=== PATIENT | female | born 1985 | race Caucasian/White ===

== ENCOUNTER 2016-06-16 12:54 | Emergency (ER) | payer MEDICAID, OTHER ==
[~2016-06-16] VITALS: Ht 152.4 cm; Wt 56.0 kg
[2016-06-16 13:00] VITALS: Ht 152.4 cm; Wt 56.0 kg
--- NOTE | 2016-06-16 14:54 | ERD ---
ER Documentation Chief Complaint Date/Time DATE: 06/16/16 TIME: 14:47 Chief Complaint 8 WEEKS WITH PELVIC PAIN HPI This is a 30-year-old female presents to the ER with pelvic pain that started 8 weeks. Patient states that she went to her OB clinic and she was sent here for further workup. Patient denies any vaginal bleeding. She denies any vaginal discharge. She does admit to urinary frequency however denies dysuria. Patient has been having nausea and vomiting secondary to . Vomiting is nonbilious nonbloody patient denies any diarrhea. She denies any fevers or chills. A0 P0 ROS 12 point review of systems was done, all negative except per HPI. Allergies Allergies: Coded Allergies: No Known Allergy (Unverified , 06/16/16) Physical Exam Vitals Vital Signs Date Time Temp Pulse Resp B/P Pulse Ox O2 Delivery O2 Flow Rate FiO2 06/16/16 13:00 98.1 69 19 106/59 99 Physical Exam GENERAL: The patient is well developed and appropriate for usual state of health , in no apparent distress. HEENT: Atraumatic. CHEST: Clear to auscultation bilaterally. There are no rales, wheezes or rhonchi. HEART: Regular rate and rhythm. No murmurs, clicks, rubs or gallops. ABDOMEN: Soft, nontender and nondistended. Good bowel sounds. No rebound or guarding. No gross peritonitis. No gross organomegaly or masses. No Jefferson sign or McBurney point tenderness. BACK: No midline or flank tenderness. NEURO: Alert and oriented. Result Diagram: 06/16/16 1455 Results 24 hrs Laboratory Tests Test 06/16/16 14:40 06/16/16 14:55 Urine Color LT. YELLOW Urine Clarity CLEAR Urine pH 7.0 Urine Specific [place] 1.015 Urine Ketones NEGATIVE Urine Nitrite NEGATIVE Urine Bilirubin NEGATIVE Urine Urobilinogen 0.2 E.U./dL Urine Leukocyte Esterase TRACE Urine Microscopic RBC 2-5/HPF Urine Microscopic WBC 5-10/HPF Urine Epithelial Cells MODERATE Urine Bacteria FEW Urine Hemoglobin TRACE Urine Glucose NEGATIVE% Urine Total Protein NEGATIVE White Blood Count 11.510^3/ul Red Blood Count 4.0010^6/ul Hemoglobin 12.6g/dl Hematocrit 37.6% Mean Corpuscular Volume 94.0fl Mean Corpuscular Hemoglobin 31.5pg Mean Corpuscular Hemoglobin Concent 33.5g/dl Red Cell Distribution Width 13.3% Platelet Count 55976^3/UL Mean Platelet Volume 9.6fl Neutrophils % 75.9% Lymphocytes % 17.7% Monocytes % 5.0% Eosinophils % 0.8% Basophils % 0.3% Nucleated Red Blood Cells % 0.0/100WBC Neutrophils # 8.710^3/ul Lymphocytes # 2.010^3/ul Monocytes # 0.610^3/ul Eosinophils # 0.110^3/ul Basophils # 0.010^3/ul Nucleated Red Blood Cells # 0.010^3/ul Beta HCG, Quantitative 42951.0mIU/ml Procedures/MDM Differential diagnosis: Threatened , missed , incomplete , ectopic , molar , UTI, pyelonephritis. At this time etiology of pelvic pain is unknown however it may be normal given the patient is in a second trimester uterus is expanding. At this time there is no evidence of demise or any other abnormality with the . Patient has denied any vaginal bleeding. There is no evidence of placenta previa or placenta abruptio. Patient is a follow-up with her primary care doctor within 1 -2 days or return to ER sooner if symptoms worsen. My medical decision making shared with the patient she understands and agrees with plan. Departure Diagnosis: Primary Impression: Pelvic pain Condition: Stable MARK SLOAN Jun 16, 2016 14:54
[2016-06-16 15:16] LABS: ADD SCAN DIFF NO
[2016-06-16 15:19] LABS: BASOPHILS % 0.3 % (0.0-2.0); EOSINOPHILS # 0.1 10^3/ul (0.0-0.5); EOSINOPHILS % 0.8 % (0.0-7.0); HEMATOCRIT 37.6 % (37.0-47.0); HEMOGLOBIN 12.6 g/dl (12.0-16.0); LYMPHOCYTES % 17.7 % (15.0-51.0); MEAN CORPUSCULAR HEMOGLOBIN 31.5 pg (29.0-33.0); MEAN CORPUSCULAR HGB CONC 33.5 g/dl (32.0-37.0); MEAN PLATELET VOLUME 9.6 fl (7.4-10.4); MONOCYTE # 0.6 10^3/ul (0.3-0.9); NEUTROPHIL # 8.7 10^3/ul (1.6-7.5); NEUTROPHILS % 75.9 % (39.0-77.0); PLATELET COUNT 296 10^3/UL (140-415); RED CELL DISTRIBUTION WIDTH 13.3 % (11.5-14.5); WHITE BLOOD COUNT 11.5 10^3/ul (4.8-10.8)
[2016-06-16 15:21] LABS: ADD UMIC YES; URINE BILIRUBIN (Dip) NEGATIVE (NEGATIVE); URINE BLOOD (Dip) TRACE (NEGATIVE); URINE COLOR LT. YELLOW (YELLOW); URINE GLUCOSE (Dip) NEGATIVE (NEGATIVE); URINE KETONES (Dip) NEGATIVE (NEGATIVE); URINE LEUKOCYTE ESTERASE (Dip) TRACE (NEGATIVE); URINE NITRITE (Dip) NEGATIVE (NEGATIVE); URINE TOTAL PROTEIN (Dip) NEGATIVE (NEGATIVE); URINE UROBILINOGEN (Dip) 0.2 E.U./dL (0.1-1.0)
--- NOTE | 2016-06-16 15:27 | RADRPT ---
PROCEDURE: US OB. CLINICAL INDICATION: Size and dates , pelvic pain TECHNIQUE: Multiple sonographic images of the pelvis and gravid uterus were obtained. The images were reviewed on a PACS workstation. COMPARISON: No prior studies are available for comparison. FINDINGS: There is a single viable intrauterine gestation. Cardiac activity is present with 148 beats per min [place]. There is a breech presentation. The placenta is posterior. There is no evidence for an abruption or placenta previa. There is a normal amount of amniotic fluid with a MVP = 4.1 cm. Measurements were made in order to determine age. The results are as follows: BPD =3.5 cm HC =13 cm AC =10.5 cm FL =2.0 cm Estimated gestational age of approximately 16 weeks and 3 days based on ultrasound measurements. Clinical age: 16 weeks and 0 days. The estimated date of delivery is 11/28/16, based on ultrasound measurements. The EFW = 152 g, 63%, based on LMP age. RPTAT: AA IMPRESSION: Single viable intrauterine gestation of approximately 16 weeks and 3 days based on ultrasound measu rements. .Ras Diane MD, Date Time Electronically viewed and signed by .Ras Diane MD, on 06/16/2016 15:26 .S/
[2016-06-16 15:33] LABS: BACTERIA,URINE FEW
[2016-06-16 17:09] VITALS: BP 116/63; PULSE 88; RESP 17; TEMP 98
== END 2016-06-16 17:18 | disposition home or self-care (01) ==
LOC: FTE 12:54
DX: O26.892 Other specified pregnancy related conditions, second trimester (principal); R10.2 Pelvic and perineal pain; Z3A.16 16 weeks gestation of pregnancy
CPT/HCPCS: 76805; 81001; 84702; 85025; 86900; 86901; Z7502; 81003

== ENCOUNTER 2016-10-11 21:50 | Outpatient (CLI) | payer MEDICAID ==
[~2016-10-11] VITALS: Ht 157.5 cm; Wt 71.9 kg
[2016-10-11] MEDS ORDERED: PRENAT PO (22:39)
[2016-10-11] MEDS ORDERED: FOLI0.4T2 PO (22:39)
[2016-10-11 22:40] VITALS: Ht 157.5 cm; Wt 71.9 kg
[2016-10-11 22:59] VITALS: BP 110/58; PULSE 76; RESP 18
[2016-10-11 23:26] LABS: ADD UMIC YES; UR ASCORBIC ACID 20 mg/dL (NEGATIVE); UR BACTERIA FEW /HPF (NONE SEEN); UR BILIRUBIN (Dip) NEGATIVE (NEGATIVE); UR BLOOD (Dip) NEGATIVE (NEGATIVE); UR CLARITY CLEAR (CLEAR); UR COLOR YELLOW (YELLOW); UR GLUCOSE (Dip) NEGATIVE (NEGATIVE); UR KETONES (Dip) NEGATIVE (NEGATIVE); UR LEUKOCYTE ESTERASE (Dip) TRACE Leu/ul (NEGATIVE); UR MUCUS FEW /HPF (NONE SEEN); UR NITRITE (Dip) NEGATIVE (NEGATIVE); UR RBC 1 /HPF (0-5); UR SPECIFIC GRAVITY (Dip) 1.023 (1.003-1.030); UR SQUAMOUS EPITHELIAL CELL MODERATE /HPF (FEW); UR TOTAL PROTEIN (Dip) NEGATIVE (NEGATIVE); UR UROBILINOGEN (Dip) NEGATIVE (NEGATIVE)
[2016-10-11 23:40] LABS: ALBUMIN 3.6 g/dl (3.3-4.9); ALBUMIN/GLOBULIN RATIO 1.09; BILIRUBIN,INDIRECT 0.2 mg/dl (0-1.1); BILIRUBIN,TOTAL 0.2 mg/dl (0.2-1.3); CALCIUM 8.7 mg/dl (8.4-10.2); CREATININE 0.43 mg/dl (0.44-1.00); POTASSIUM 3.5 mmol/L (3.5-5.1); TOTAL PROTEIN 6.9 g/dl (6.1-8.1)
--- NOTE | 2016-10-12 00:59 | PN ---
Triage Information Date/Time October 12, 2016 Reason for visit: Rash, itching Weeks of Gestation 33w 3d /Para 1/0 Diabetes: none Hypertention: none Additional information Rash started 3 days ago and increasing with time. Seems to have gotten better since she got here. PMHx: none. PSHx: none. NKDA. Objective Vital Signs Date Time Temp Pulse Resp B/P Pulse Ox O2 Delivery O2 Flow Rate FiO2 10/11/16 22:59 98.2 76 18 110/58 Room Air Heart Rate: 130's Heart Rate Comments Accels to 160 bpm. No decels. Contractions: >10 Minutes Apart Results/Medications Result Diagram: 10/11/16 3623 Results 24 hrs Laboratory Tests Test 10/11/16 21:50 10/11/16 23:13 Urine Color YELLOW Urine Clarity CLEAR Urine pH 5.0 Urine Specific [place] 1.023 Urine Ketones NEGATIVE Urine Nitrite NEGATIVE Urine Bilirubin NEGATIVE Urine Urobilinogen NEGATIVE Urine Leukocyte Esterase TRACE A Urine Microscopic RBC 1 Urine Microscopic WBC 6 H Urine Squamous Epithelial Cells MODERATE Urine Bacteria FEW A Urine Mucus FEW A Urine Hemoglobin NEGATIVE Urine Glucose NEGATIVE Urine Total Protein NEGATIVE Sodium Level 136 Potassium Level 3.5 Chloride Level 106 Carbon Dioxide Level 22 Anion Gap 12 Blood Urea Nitrogen 8 Creatinine 0.43 L Glucose Level 90 Calcium Level 8.7 Total Bilirubin 0.2 Direct Bilirubin 0.00 Indirect Bilirubin 0.2 Aspartate Amino Transf (AST/SGOT) 38 Alanine Aminotransferase (ALT/SGPT) 72 H Alkaline Phosphatase 146 H Total Protein 6.9 Albumin 3.6 Globulin 3.30 H Albumin/Globulin Ratio 1.09 Medications Current Medications Calamine (Calamine Lotion) 1 applic ONCE ONCE TOP ; Start 10/12/16 at 01:00; Stop 10/12/16 at 01:01; Status UNV Disposition: Discharge Assessment/Plan A: IUP at 33w 3d. Rash, pruritus. Possible cholestasis. P:Total bile acids pending. Calamine lotion given to pt. Keep appt with her MD on 10/16 and she is to tell him to check lab results. Reviewed with pt the different possible causes of her rash. MATTIE PAREDES MD Oct 12, 2016 00:59
[2016-10-12] MEDS ORDERED: CALAMINE 170 ML LOT TOP ONE ×2 (01:00)
--- NOTE | 2016-10-12 02:15 | TRIAGE ---
OB Triage Datetime Report Generated by CPN: 10/12/2016 02:15 Datetime: 10/11/2016 22:00 Time of Arrival: 10/11/2016 21:33 EGA: 33.2 Arrived By: Ambulatory Arrived From: Home Chief Complaint: Itching, Rash Pelvic pain Movement: Present Contractions: Denies/Absent Rupture of Membranes: Denies Vaginal Bleeding: None Vaginal Discharge: Denies Recent Sexual Intercouse: Denies Abdominal Trauma: Not Applicable Patient Complaints: Other Time Provider Notified: 10/11/2016 22:15 Provider Notified: Dr العراقي Initial Plan: EFM X2, Bile acids, LFT's, UA
[2016-10-18 21:31] LABS: CHENODEOXYCHOLIC ACID 2.6 umol/L (< OR = 3.1); CHOLIC ACID 5.4 umol/L (< OR = 1.8); DEOXYCHOLIC ACID 0.6 umol/L (< OR = 2.4); TOTAL BILE ACIDS 8.6 umol/L (< OR = 6.8)
== END 2016-10-12 01:31 | disposition home or self-care (01) ==
LOC: OBT 21:50 → L-D 21:51 → OBT 10-12 01:31
PROVIDERS: ATTEND Obstetrics & Gynecology
DX: O26.893 Other specified pregnancy related conditions, third trimester (principal); Z3A.33 33 weeks gestation of pregnancy; R21 Rash and other nonspecific skin eruption; L29.9 Pruritus, unspecified
CPT/HCPCS: 80053; 81001; 83789; Z7500; Z7610; G0463

== ENCOUNTER 2016-10-30 17:49 | Outpatient (CLI) | payer MEDICAID ==
[~2016-10-30] VITALS: Ht 157.5 cm; Wt 73.9 kg
[~2016-10-30 17:49] MED LIST: FOLI0.4T2 PO; PRENAT PO
--- NOTE | 2016-10-30 18:46 | RADRPT ---
PROCEDURE: US OB biophysical profile. CLINICAL INDICATION: evaluation, cholestasis TECHNIQUE: Multiple sonographic images of the pelvis were obtained. The images were reviewed on a PACS workstation. COMPARISON: No prior studies are available for comparison. FINDINGS: There is a single viable intrauterine gestation. Cardiac activity is present with 143 beats per min [place]. There is a vertex presentation. The placenta is posterior and fundal in location. There is no evidence of placental abruption. There is a mildly low amount of amniotic fluid with an NORM = 7.8 cm. Biophysical profile: movement 2/2 tone 2/2. breathing 2/2 NORM 2/2 Total 10/07 RPTAT: AA . IMPRESSION: Normal biophysical profile. Mildly low NORM of 7.8 cm. Physician Angela Date Time Electronically viewed and signed by Physician Angela on 10/30/2016 18:45 /
[2016-10-30 20:20] VITALS: BP 105/57; PULSE 78; RESP 18
[2016-10-30] MEDS ORDERED: LACTATED RINGER'S 1,000 ML IV SCH (21:30)
[2016-10-30] MEDS ORDERED: LACTATED RINGER'S 1,000 ML IV ONE (21:30)
[2016-10-30 22:44] LABS: ALBUMIN 3.1 g/dl (3.3-4.9); ALBUMIN/GLOBULIN RATIO 0.96; BILIRUBIN,INDIRECT 0.2 mg/dl (0-1.1); BILIRUBIN,TOTAL 0.2 mg/dl (0.2-1.3); CALCIUM 8.8 mg/dl (8.4-10.2); CREATININE 0.37 mg/dl (0.44-1.00); POTASSIUM 3.9 mmol/L (3.5-5.1); TOTAL PROTEIN 6.3 g/dl (6.1-8.1)
--- NOTE | 2016-10-31 01:47 | RADRPT ---
PROCEDURE: ULTRASOUND OBSTETRICAL CLINICAL INDICATION: 30-year-old female for amniotic fluid at index evaluation. TECHNIQUE: Multiple sonographic images of the pelvis were obtained. The images were reviewed on a PACS workstation. COMPARISON: Ultrasound biophysical profile October 30, 2016. FINDINGS: There is a single viable intrauterine gestation. Cardiac activity is present with 136 beats per min [place]. There is a vertex presentation. The placenta is fundal. There is a normal amount of amniotic fl uid with an NORM = 8.3 cm. IMPRESSION: 1. Single viable intrauterine gestation with vertex presentation. 2. The amniotic fluid index equals 8.3 cm. .Kelvin Hurst MD, MD Date Time Electronically viewed and signed by .Kelvin Hurst MD, on 10/31/2016 01:46 .Marlo/
--- NOTE | 2016-10-31 02:58 | PN ---
Triage Information Date/Time [id number] Reason for visit: cholestasis itching for 3weeks Weeks of Gestation 35w4d /Para primigravida Diabetes: none Additional information serum bile acid pending Objective Vital Signs Date Time Temp Pulse Resp B/P Pulse Ox O2 Delivery O2 Flow Rate FiO2 10/30/16 20:20 98.5 78 18 105/57 Room Air Intake and Output 10/30/16 10/30/16 10/31/16 15:00 23:00 07:00 Intake Total 1000 ml 1000 ml Balance 1000 ml 1000 ml Heart Rate: 140's Heart Rate Comments reactive Contractions: None Results/Medications Result Diagram: 10/30/16 2100 Results 24 hrs Laboratory Tests Test 10/30/16 21:00 Sodium Level 136 Potassium Level 3.9 Chloride Level 104 Carbon Dioxide Level 20 L Anion Gap 16 Blood Urea Nitrogen 7 Creatinine 0.37 L Glucose Level 81 Calcium Level 8.8 Total Bilirubin 0.2 Direct Bilirubin 0.00 Indirect Bilirubin 0.2 Aspartate Amino Transf (AST/SGOT) 36 Alanine Aminotransferase (ALT/SGPT) 65 Alkaline Phosphatase 214 H Total Protein 6.3 Albumin 3.1 L Globulin 3.20 Albumin/Globulin Ratio 0.96 Imaging Results BPP 8/8 NORM 7.8 repeat NORM 8.3 afte IV hydration Disposition: Discharge Assessment/Plan IUP 35w4d cholestasis? Plan f/u with her OB [facility] in 3days for rosendo for LOAN HERNANDEZ MD Oct 31, 2016 02:58
--- NOTE | 2016-10-31 04:15 | TRIAGE ---
OB Triage Datetime Report Generated by CPN: 10/31/2016 04:15 Datetime: 10/30/2016 23:40 Stage of : OB Triage Monitor Mode: External Quality: Mild Pattern: Normal: <= 5 Contractions in 10 Minutes Resting Tone [place]: Relaxed Heart Rate FHR Baseline Rate: 130 Monitor Mode: External US FHR Baseline Changes: No Baseline Change Variability: Moderate 6-25 bpm Accelerations: 15X15 Decelerations: None Category: Category I Pain Assessment Pain Scale: 0 Pain Presence: None/Denies Pain Type: N/A Datetime: 10/30/2016 22:57 Stage of : OB Triage Monitor Mode: External US Datetime: 10/30/2016 22:34 Stage of : OB Triage Quality: Mild Pattern: Normal: <= 5 Contractions in 10 Minutes Resting Tone [place]: Relaxed Heart Rate FHR Baseline Rate: 120 Monitor Mode: External US FHR Baseline Changes: No Baseline Change Variability: Moderate 6-25 bpm Accelerations: 15X15 Decelerations: None Category: Category I Datetime: 10/30/2016 22:01 Stage of : OB Triage Monitor Mode: External Quality: Mild Pattern: Normal: <= 5 Contractions in 10 Minutes Resting Tone [place]: Relaxed Heart Rate FHR Baseline Rate: 130 Monitor Mode: External US FHR Baseline Changes: No Baseline Change Variability: Moderate 6-25 bpm Accelerations: 15X15 Decelerations: None Category: Category I Datetime: 10/30/2016 21:10 Stage of : OB Triage Monitor Mode: External Quality: Mild Pattern: Normal: <= 5 Contractions in 10 Minutes Resting Tone [place]: Relaxed Heart Rate FHR Baseline Rate: 130 Monitor Mode: External US FHR Baseline Changes: No Baseline Change Variability: Moderate 6-25 bpm Accelerations: 15X15 Decelerations: None Category: Category I Datetime: 10/30/2016 20:46 Monitor Mode: External Pattern: Normal: <= 5 Contractions in 10 Minutes Resting Tone [place]: Relaxed Heart Rate FHR Baseline Rate: 130 Monitor Mode: External US FHR Baseline Changes: No Baseline Change Variability: Moderate 6-25 bpm Accelerations: 15X15 Decelerations: None Category: Category I Datetime: 10/30/2016 20:36 Vaginal Exam Membrane Status: Intact Datetime: 10/30/2016 20:25 Monitor Mode: External Pattern: Normal: <= 5 Contractions in 10 Minutes Resting Tone [place]: Relaxed Heart Rate FHR Baseline Rate: 130 Monitor Mode: External US FHR Baseline Changes: No Baseline Change Variability: Moderate 6-25 bpm Accelerations: 15X15 Decelerations: None Category: Category I Datetime: 10/30/2016 19:57 Stage of : OB Triage Maternal Assessment Level of Consciousness: Fully Conscious Headache: Denies Blurred Vision: No Respiratory Effort: Unlabored Nausea/Vomiting: Denies RUQ Epigastric Pain: Denies Facial Edema: None Labor Evaluation Frequency: placed Monitor Mode: External Resting Tone [place]: Relaxed Heart Rate FHR Baseline Rate: 130 Monitor Mode: External US Pain Assessment Pain Scale: 0 Pain Presence: None/Denies Pain Type: N/A Datetime: 10/30/2016 19:30 Time of Arrival: 10/30/2016 17:35 EGA: 36.0 Arrived By: Ambulatory Arrived From: Office Chief Complaint: sent from clinic w/ orders for NST/BPP for cholestasis Movement: Present Contractions: Denies/Absent Patient Complaints: Other Time Provider Notified: 10/30/2016 21:10 Provider Notified: Dr Hilario Initial Plan: NST/BPP Datetime: 10/12/2016 00:38 Stage of : OB Triage Datetime: 10/12/2016 00:30 Stage of : OB Triage Labor Evaluation Frequency: Occasional Monitor Mode: External Duration (sec)2399: 40-60 Quality: Mild Pattern: Normal: <= 5 Contractions in 10 Minutes Resting Tone [place]: Relaxed Heart Rate FHR Baseline Rate: 135 Monitor Mode: External US FHR Baseline Changes: No Baseline Change Variability: Moderate 6-25 bpm Accelerations: 15X15 Decelerations: None Category: Category I Datetime: 10/11/2016 23:30 Stage of : OB Triage Labor Evaluation Frequency: Occasional Monitor Mode: External Duration (sec)2399: 40-60 Quality: Mild Pattern: Normal: <= 5 Contractions in 10 Minutes Resting Tone [place]: Relaxed Heart Rate FHR Baseline Rate: 125 Monitor Mode: External US FHR Baseline Changes: No Baseline Change Variability: Moderate 6-25 bpm Accelerations: 15X15 Decelerations: None Category: Category I Datetime: 10/11/2016 22:47 Assessment Type: Triage Maternal Assessment Level of Consciousness: Fully Conscious DTR's/Clonus: DTRs 2+; No Clonus Headache: Denies Blurred Vision: No Respiratory Effort: Unlabored; Regular Rhythm; Equal Expansion Breath Sounds, Left: Clear and Equal Breath Sounds, Right: Clear and Equal Nausea/Vomiting: Denies RUQ Epigastric Pain: Denies Lower Extremities Edema: None Degree: None Upper Extremities Edema: None Degree: None Facial Edema: None Fall Risk Assessment History of Falling: (0) No Secondary Diagnosis: (0) No Ambulatory Aid: (0) Bedrest/Nurse Assist IV Therapy: (0) No Gait: (0) Normal/Bedrest/Immobile Mental Status: (0) Oriented to Own Ability Fall Score: 0 Fall Risk Score Definition: No Risk: No action required Comment: Pt has visible rashy spots over both BUE and BLE. Datetime: 10/11/2016 22:28 Monitor Mode: External Contraction Comments: Applied Monitor Mode: External US Comments: Applied Datetime: 10/11/2016 22:00 EGA: 33.2
== END 2016-10-31 02:26 | disposition home or self-care (01) ==
LOC: L-D 17:49 → OBT 17:49 → L-D 19:47 → OBT 10-31 02:26
PROVIDERS: ATTEND Obstetrics & Gynecology
DX: O26.613 Liver and biliary tract disorders in pregnancy, third trimester (principal); K83.1 Obstruction of bile duct; O26.893 Other specified pregnancy related conditions, third trimester; L29.9 Pruritus, unspecified; Z3A.35 35 weeks gestation of pregnancy
CPT/HCPCS: 36415; 76815; 76818; 80053; 96360; 96361; G0463; J7120

== ENCOUNTER 2016-11-07 14:47 | Outpatient (CLI) | payer MEDICAID ==
[~2016-11-07] VITALS: Ht 152.4 cm; Wt 74.9 kg
--- NOTE | 2016-11-07 15:14 | RADRPT ---
PROCEDURE: Obstetrical ultrasound for biophysical profile CLINICAL INDICATION: Biophysical profile. . TECHNIQUE: Obstetrical ultrasound of the uterus for biophysical profile. Transabdominal views are obtained. COMPARISON: 10/31/2016 FINDINGS: Single intrauterine gestation. Presentation: Cephalic. Placenta: Fundal - posterior No evidence of placental abruption. No evidence of placenta previa. breathing movement = 2/2 tone = 2/2 motion = 2/2 NORM = 2/2 NORM = 15.3 cm heart rate: 161 beats per minute IMPRESSION: Single intrauterine gestation. Biophysical profile 10/07 RPTAT: AADD .Bobby Zapata MD, MD Date Time Electronically viewed and signed by .Bobby Zpaata MD, on 11/07/2016 15:13 .B/
[2016-11-07 15:21] VITALS: BP 110/64; PULSE 77; Ht 152.4 cm; Wt 74.9 kg
[2016-11-07 17:31] LABS: ALBUMIN 3.2 g/dl (3.3-4.9); BILIRUBIN,INDIRECT 0.2 mg/dl (0-1.1); BILIRUBIN,TOTAL 0.2 mg/dl (0.2-1.3); CALCIUM 9.2 mg/dl (8.4-10.2); CREATININE 0.41 mg/dl (0.44-1.00); POTASSIUM 4.1 mmol/L (3.5-5.1); TOTAL PROTEIN 6.4 g/dl (6.1-8.1)
--- NOTE | 2016-11-07 18:23 | PN ---
Triage Information Date/Time Reason for visit: Weeks of Gestation 37w 1d /Para Additional information Elevated LFTs Objective Vital Signs Date Time Temp Pulse Resp B/P Pulse Ox O2 Delivery O2 Flow Rate FiO2 11/07/16 15:21 97.9 77 110/64 Heart Rate Comments reactive Contractions: >10 Minutes Apart Results/Medications Result Diagram: 11/07/16 1645 Results 24 hrs Laboratory Tests Test 11/07/16 16:45 Sodium Level 135 Potassium Level 4.1 Chloride Level 108 Carbon Dioxide Level 22 Anion Gap 9 Blood Urea Nitrogen 7 Creatinine 0.41 L Glucose Level 78 Calcium Level 9.2 Total Bilirubin 0.2 Direct Bilirubin 0.00 Indirect Bilirubin 0.2 Aspartate Amino Transf (AST/SGOT) 33 Alanine Aminotransferase (ALT/SGPT) 53 Alkaline Phosphatase 242 H Total Protein 6.4 Albumin 3.2 L Globulin 3.20 Albumin/Globulin Ratio 1.00 Imaging Results BPP 10/07, NORM 15.3cm Disposition: Discharge Assessment/Plan 30 y/o at 37w 1d with elevated LFTs, decreasing -discharge home -biweekly NSTs/NORM -f/u with OB GERARDO CRAFT Nov 07, 2016 18:23
--- NOTE | 2016-11-07 18:26 | TRIAGE ---
OB Triage Datetime Report Generated by CPN: 11/07/2016 18:26 Datetime: 11/07/2016 18:07 Stage of : OB Triage Datetime: 11/07/2016 17:58 Labor Evaluation Frequency: x1 Monitor Mode: External Duration (sec)2399: 70 Quality: Mild Pattern: Normal: <= 5 Contractions in 10 Minutes Resting Tone [place]: Relaxed Contraction Comments: denies feeling Heart Rate FHR Baseline Rate: 125 Monitor Mode: External US Variability: Moderate 6-25 bpm Accelerations: 10X10 Decelerations: None Category: Category I Pain Assessment Pain Scale: 0 Pain Presence: None/Denies Pain Type: N/A Pain Goal: 3 Pain Relief Measures: Comfort Measures Datetime: 11/07/2016 17:54 Stage of : OB Triage Datetime: 11/07/2016 16:26 Stage of : OB Triage Datetime: 11/07/2016 16:20 Labor Evaluation Frequency: 0 Monitor Mode: External Resting Tone [place]: Relaxed Heart Rate FHR Baseline Rate: 125 Monitor Mode: External US Variability: Moderate 6-25 bpm Accelerations: 10X10 Decelerations: None Category: Category I Pain Assessment Pain Scale: 0 Pain Presence: None/Denies Pain Type: N/A Pain Goal: 3 Pain Relief Measures: Comfort Measures Datetime: 11/07/2016 15:17 Stage of : OB Triage Assessment Type: Triage Maternal Assessment Level of Consciousness: Fully Conscious DTR's/Clonus: DTRs 2+; No Clonus Headache: Denies Blurred Vision: No Respiratory Effort: Unlabored; Regular Rhythm; Equal Expansion Breath Sounds, Left: Clear and Equal Breath Sounds, Right: Clear and Equal Nausea/Vomiting: Denies RUQ Epigastric Pain: Denies Facial Edema: None Temperature Route: Axillary Fall Risk Assessment History of Falling: (0) No Secondary Diagnosis: (0) No Ambulatory Aid: (0) Bedrest/Nurse Assist IV Therapy: (0) No Gait: (0) Normal/Bedrest/Immobile Mental Status: (0) Oriented to Own Ability Fall Score: 0 Fall Risk Score Definition: No Risk: No action required Labor Evaluation Frequency: APPLIED Monitor Mode: External Heart Rate FHR Baseline Rate: 150 Monitor Mode: External US Variability: Moderate 6-25 bpm Accelerations: 10X10 Decelerations: None Category: Category I Pain Assessment Pain Scale: 0 Pain Presence: None/Denies Pain Type: N/A Pain Goal: 3 Pain Relief Measures: Comfort Measures Datetime: 11/07/2016 15:15 Time of Arrival: 11/07/2016 14:40 EGA: 37.1 Arrived By: Ambulatory Arrived From: Home Chief Complaint: INCREASD LIVER ENZYMES, BIWEEKLY NST/BPP Movement: Present Contractions: Denies/Absent Rupture of Membranes: Denies Vaginal Bleeding: None Vaginal Discharge: Denies Recent Sexual Intercouse: Denies Abdominal Trauma: Not Applicable Time Provider Notified: 11/07/2016 16:26 Provider Notified: eshaghian Initial Plan: MONITOR, BPP, cmp Datetime: 10/31/2016 02:08 Stage of : OB Triage Datetime: 10/31/2016 01:42 Stage of : OB Triage Monitor Mode: External Quality: Mild Pattern: Normal: <= 5 Contractions in 10 Minutes Resting Tone [place]: Relaxed Heart Rate FHR Baseline Rate: 125 Monitor Mode: External US FHR Baseline Changes: No Baseline Change Variability: Moderate 6-25 bpm Accelerations: 15X15 Decelerations: None Category: Category I Datetime: 10/31/2016 00:41 Stage of : OB Triage Quality: Mild Pattern: Normal: <= 5 Contractions in 10 Minutes Resting Tone [place]: Relaxed Heart Rate FHR Baseline Rate: 135 Monitor Mode: External US FHR Baseline Changes: No Baseline Change Variability: Moderate 6-25 bpm Accelerations: 15X15 Decelerations: None Category: Category I Datetime: 10/30/2016 19:30 EGA: 36.0 Datetime: 10/11/2016 22:47 Fall Score: 0 Fall Risk Score Definition: No Risk: No action required Datetime: 10/11/2016 22:00 EGA: 33.2
== END 2016-11-07 18:15 | disposition home or self-care (01) ==
LOC: L-D 14:47 → OBT 14:47 → L-D 14:56 → OBT 18:15
PROVIDERS: ATTEND Obstetrics & Gynecology
DX: O26.893 Other specified pregnancy related conditions, third trimester (principal); Z3A.37 37 weeks gestation of pregnancy; R94.5 Abnormal results of liver function studies
CPT/HCPCS: 36415; 76818; 80053; G0463

== ENCOUNTER 2016-11-10 14:10 | Outpatient (CLI) | payer MEDICAID ==
[~2016-11-10] VITALS: Ht 157.5 cm; Wt 74.9 kg
[2016-11-10 14:30] VITALS: Ht 157.5 cm; Wt 74.9 kg
[2016-11-10 14:31] VITALS: BP 106/61; PULSE 96; RESP 18
--- NOTE | 2016-11-10 15:01 | RADRPT ---
PROCEDURE: US OB biophysical profile. CLINICAL INDICATION: decreased movements, abdominal pain TECHNIQUE: Multiple sonographic images of the pelvis were obtained. The images were reviewed on a PACS workstation. COMPARISON: 11/07/2016 FINDINGS: There is a single viable intrauterine gestation. Cardiac activity is present with 129 beats per min [place]. There is a vertex presentation. The placenta is fundal. There is no evidence of placental abruption. There is a normal amount of amniotic fluid with an NORM = 11.8 cm. Biophysical profile: movement 2/2 tone 2/2. breathing 2/2 NORM 2/2 Total 10/07 RPTAT: AA . IMPRESSION: Normal biophysical profile. . .Ras Diane MD, MD Date Time Electronically viewed and signed by .Ras Diane MD, MD on 11/10/2016 15:00 .S/
--- NOTE | 2016-11-10 15:44 | TRIAGE ---
OB Triage Datetime Report Generated by CPN: 11/10/2016 15:44 Datetime: 11/10/2016 15:20 Stage of : OB Triage Maternal Assessment Level of Consciousness: Fully Conscious Labor Evaluation Frequency: NONE Monitor Mode: External Resting Tone [place]: Relaxed Heart Rate FHR Baseline Rate: 135 Monitor Mode: External US Variability: Moderate 6-25 bpm Accelerations: 15X15 Decelerations: None Category: Category I Pain Assessment Pain Scale: 0 Pain Goal: 3 Vaginal Exam Membrane Status: Intact Vaginal Bleeding: None Datetime: 11/10/2016 14:35 Assessment Type: Triage Maternal Assessment Level of Consciousness: Fully Conscious DTR's/Clonus: DTRs 2+; No Clonus Headache: Denies Blurred Vision: No Respiratory Effort: Unlabored; Regular Rhythm; Equal Expansion Breath Sounds, Left: Clear and Equal Breath Sounds, Right: Clear and Equal Nausea/Vomiting: Denies RUQ Epigastric Pain: Denies Lower Extremities Edema: None Degree: None Upper Extremities Edema: None Degree: None Facial Edema: None Fall Risk Assessment History of Falling: (0) No Secondary Diagnosis: (0) No Ambulatory Aid: (0) Bedrest/Nurse Assist IV Therapy: (0) No Gait: (0) Normal/Bedrest/Immobile Mental Status: (0) Oriented to Own Ability Fall Score: 0 Fall Risk Score Definition: No Risk: No action required Datetime: 11/10/2016 14:33 Time of Arrival: 11/10/2016 14:02 EGA: 37.1 Arrived By: Ambulatory Arrived From: Home Chief Complaint: pt HERE FOR NST/BPP FOR ELV[place] LIVER ENZYMES Movement: Present Contractions: Denies/Absent Rupture of Membranes: Denies Vaginal Bleeding: None Vaginal Discharge: Denies Recent Sexual Intercouse: Yes Abdominal Trauma: Not Applicable Patient Complaints: None Time Provider Notified: 11/10/2016 15:15 Provider Notified: ESHAGHIAN Initial Plan: NST/BPP Datetime: 11/10/2016 14:28 Monitor Mode: External Monitor Mode: External US Datetime: 11/07/2016 15:17 Fall Score: 0 Fall Risk Score Definition: No Risk: No action required Datetime: 11/07/2016 15:15 EGA: 36.5 Datetime: 10/30/2016 19:30 EGA: 35.4 Datetime: 10/11/2016 22:47 Fall Score: 0 Fall Risk Score Definition: No Risk: No action required Datetime: 10/11/2016 22:00 EGA: 32.6
--- NOTE | 2016-11-10 18:49 | QN ---
Documentation Comment iup 37 weeks g1 po vss exam wnl labs wnl nst reactive a/p iup 37 pruritis dc home fu nst as ROBERTO Garcia MD Nov 10, 2016 18:49
== END 2016-11-10 15:30 | disposition home or self-care (01) ==
LOC: OBT 14:10 → L-D 14:10 → OBT 15:30
PROVIDERS: ATTEND Obstetrics & Gynecology
DX: O26.893 Other specified pregnancy related conditions, third trimester (principal); Z3A.37 37 weeks gestation of pregnancy; L29.9 Pruritus, unspecified
CPT/HCPCS: 76818; Z7500; G0463

== ENCOUNTER 2016-11-14 13:49 | Inpatient (IN) | payer MEDICAID ==
[~2016-11-14] VITALS: Ht 160 cm; Wt 69.5 kg
--- NOTE | 2016-11-14 15:10 | RADRPT ---
PROCEDURE: US OB biophysical profile. CLINICAL INDICATION: decreased movements, abdominal pain TECHNIQUE: Multiple sonographic images of the pelvis were obtained. The images were reviewed on a PACS workstation. COMPARISON: 11/10/2016 FINDINGS: There is a single viable intrauterine gestation. Cardiac activity is present with 152 beats per min [place]. There is a vertex presentation. The placenta is fundal. There is no evidence of placental abruption. There is a normal amount of amniotic fluid with an NORM = 9.4 cm. Biophysical profile: movement 2/2 tone 2/2. breathing 2/2 NROM 2/2 Total 10/07 RPTAT: AA . IMPRESSION: Normal biophysical profile. . .Ras Diane MD, MD Date Time Electronically viewed and signed by .Ras Diane MD, MD on 11/14/2016 15:10 .S/
[2016-11-14] MEDS ORDERED: OXYTOCIN 30 UNITS/LR 500 ML IV PRN (17:00)
[2016-11-14] MEDS ORDERED: METHYLERGONOVINE 0.2 MG INJ IM PRN (17:00)
[2016-11-14] MEDS ORDERED: BUTORPHANOL 2 MG INJ IV PRN ×2 (17:00)
[2016-11-14] MEDS ORDERED: MISOPROSTOL 200 MCG TAB PR PRN (17:00)
[2016-11-14] MEDS ORDERED: CARBOPROST 250 MCG INJ IM PRN (17:00)
[2016-11-14] MEDS ORDERED: LACTATED RINGER'S 1,000 ML IV PRN (17:00)
[2016-11-14] MEDS ORDERED: LIDOCAINE 1% (MPF) 30 ML INJ INJ PRN (17:00)
[2016-11-14] MEDS ORDERED: OXYTOCIN 30 UNITS/LR 500 ML IV SCH ×2 (17:00)
--- NOTE | 2016-11-14 17:00 | HP ---
Date/Time of Note Date/Time of Note DATE: 11/14/16 TIME: 16:58 OB - History Hx of Present Free Text/Dictation 38+wks with cholestasis of : 1 Para: 0 Care: Good Care Obstetrical Complications: Other (cholestasis of pegnacy) Medical Complications: None Past Family/Social History * Past Medical, Surgical, Family and Obstetric Histories reviewed from chart. OB Admission Exam Physical Exam Abdomen: WNL Extremities: Normal Membranes: Intact Accelerations: Accelerations Present Decelerations: No Decelerations Varibility: Moderate Contractions on Admission: >10 Minutes Apart OB Assessment/Plan Reason for admission: observation Plan: Expectant Management Other plan: Patient i admitted and needs to be evaluated by her Private OB for possible delivery RAYMOND AZAR M.D. Nov 14, 2016 17:00
[2016-11-14] MEDS: LACTATED RINGER'S 1,000 ML IV SCH (17:14)
[2016-11-14 17:37] LABS: BASOPHILS % 0.2 % (0.0-2.0); EOSINOPHILS # 0.1 10^3/ul (0.0-0.5); HEMATOCRIT 40.3 % (37.0-47.0); HEMOGLOBIN 13.9 g/dl (12.0-16.0); LYMPHOCYTES # 1.8 10^3/ul (0.8-2.9); LYMPHOCYTES % 19.4 % (15.0-51.0); MEAN CORPUSCULAR HGB CONC 34.5 g/dl (32.0-37.0); MEAN CORPUSCULAR VOLUME 95.7 fl (82.0-101.0); MEAN PLATELET VOLUME 10.9 fl (7.4-10.4); MONOCYTE # 0.7 10^3/ul (0.3-0.9); MONOCYTES % 7.3 % (0.0-11.0); NEUTROPHIL # 6.7 10^3/ul (1.6-7.5); NEUTROPHILS % 71.5 % (39.0-77.0); PLATELET COUNT 266 10^3/UL (140-415); RED BLOOD COUNT 4.21 10^6/ul (4.20-5.40); RED CELL DISTRIBUTION WIDTH 12.4 % (11.5-14.5); WHITE BLOOD COUNT 9.4 10^3/ul (4.8-10.8)
[2016-11-14 18:02] LABS: INR 0.82; PROTIME 11.3 Sec (12.2-14.2); PT RATIO 0.9
[2016-11-14 18:03] LABS: PARTIAL THROMBOPLASTIN TIME 27.1 Sec (25.0-35.0)
--- NOTE | 2016-11-15 07:49 | QN ---
Documentation Comment patient is seen and evaluated AAo x 3 complains of generalized itching vs stable ab gravid not extremity no edema no calf tenderness ve short close, no vaginal lesions fhr cat 1 toco no ctx bile acid in mid agust 8.6 a/ iup at 38 wks 2 day with symptomatic cholestasis of p/ start cytotec regimen r/b/a explained all question answered DAVID MALDNOADO MD Nov 15, 2016 07:49
[2016-11-15] MEDS: MISOPROSTOL 25 MCG CAPSULE PO SCH ×4 (09:39→21:55)
[2016-11-16] MEDS: MISOPROSTOL 25 MCG CAPSULE PO SCH ×6 (02:06→21:00)
[2016-11-16] MEDS: LACTATED RINGER'S 1,000 ML IV SCH ×4 (06:12→16:35)
[2016-11-16] MEDS ORDERED: OXYTOCIN 30 UNITS/LR 500 ML IV SCH (10:30)
--- NOTE | 2016-11-16 12:28 | QN ---
Documentation Comment Progress note labor and delivery Patient was seen and evaluated awake alert oriented 3 no complaints Vital signs stable Abdomen gravid nontender negative CVA bilateral Extremity negative edema no calf tenderness Vaginal exam 1 cm dilated 50% effaced -3 station spontaneous rupture of membranes heart tracing category 1 [place] regular contractions Assessment intrauterine at term admitted for induction secondary to cholestasis of currently on Pitocin Plan continue present management risks benefits alternatives explained all questions were answered DAVID MALDONADO MD Nov 16, 2016 12:28
[2016-11-16] MEDS ORDERED: FENTAnyl 2MCG/ML-ROPIV 0.2% 100 ML ONE (15:41)
[2016-11-16 15:55] VITALS: Ht 160 cm; Wt 69.5 kg
[2016-11-17] MEDS: LACTATED RINGER'S 1,000 ML IV SCH ×6 (00:11→21:47)
[2016-11-17] MEDS ORDERED: MINERAL OIL LIGHT 10 ML VIAL TOP PRN (00:30)
[2016-11-17] MEDS: MISOPROSTOL 25 MCG CAPSULE PO SCH ×2 (01:00→05:00)
[2016-11-17] MEDS: FENTAnyl 2MCG/ML-ROPIV 0.2% 100 ML BAG EPI SCH ×2 (01:12→08:48)
[2016-11-17] MEDS ORDERED: NALOXONE (0.4 MG/ML) INJ IV PRN ×2 (01:30→16:00)
[2016-11-17] MEDS ORDERED: AMPICILLIN 2 GM/NS (PMX) 100 ML IV ONE (02:00)
[2016-11-17] MEDS: AMPICILLIN 1 GM/NS (PMX) 50 ML IV SCH ×2 (06:32→10:38)
[2016-11-17] MEDS ORDERED: CEFAZOLIN 1 GM INJ ONE (14:00)
[2016-11-17] MEDS ORDERED: OXYTOCIN 30 UNITS/LR 500 ML BAG IV ONE (14:00)
--- NOTE | 2016-11-17 14:27 | QN ---
Documentation Comment Preop progress note Patient was seen and evaluated awake alert oriented 3 Currently having recurrent decelerations Vaginal exam centimeter dilated 100% effaced +2 station positive meconium Patient declines vacuum assisted delivery Assessment interim at 38 weeks gestational age cholestasis of category 2 tracing positive meconium , prolonged rupture of membranes, anterior vaginal cyst declines vacuum-assisted vaginal delivery desires delivery Plan consent for primary risks benefits alternatives may all questions were answered in Serbian and patient verbally understands and signed consent DAVID MALDONADO MD Nov 17, 2016 14:27
[2016-11-17] MEDS ORDERED: CEFAZOLIN 2 GM/50 ML (PMX) 50 ML IVPB ONE (14:35)
[2016-11-17] MEDS ORDERED: LIDOCAINE 2%/EPI 30 ML INJ ONE (14:45)
[2016-11-17] MEDS ORDERED: FENTAnyl 50 MCG/ML VIAL ONE (14:45)
[2016-11-17] MEDS ORDERED: NA BICARBONATE 8.4% 50 ML SYG ONE (14:45)
[2016-11-17] MEDS ORDERED: DEXAMETHASONE 4 MG/ML 1 ML INJ ONE (14:59)
[2016-11-17] MEDS ORDERED: ONDANSETRON 4 MG INJ ONE (14:59)
[2016-11-17] MEDS ORDERED: KETAMINE 500 MG INJ ONE (15:05)
[2016-11-17] MEDS ORDERED: morphine SULFATE/PF (10 MG/10 ML) INJ ONE (15:21)
--- NOTE | 2016-11-17 15:35 | SIPON ---
Date/Time of Note Date/Time of Note DATE: 11/17/16 TIME: 15:32 Operative Report Free Text/Dictation a viable male aprgar 8/9 weight 7lb 8 oz op presentation positive meconium Preoperative Diagnosis up at 38 weeks gestational age cholestasis of category 2 tracing positive meconium , in labor, prolonged rupture of membranes,anterior vaginal cyst declines vacuum-assisted vaginal delivery desires delivery Postoperative Diagnosis same Operation/Procedure Performed primary CD Surgeon see signature line Co-Surgeon: ROBERTO DE LA ROSA MD Anesthesia Type: epidural Estimated Blood Loss: other (500) Transfusion Required: no Grafts/Implants: none Complications: no DAVID MALDONADO MD Nov 17, 2016 15:35
[2016-11-17] MEDS ORDERED: NALBUPHINE HCL (10 MG/1 ML) INJ IV PRN (16:00)
[2016-11-17] MEDS ORDERED: TRIMETHOBENZAMIDE 100 MG/ML VIAL IM PRN (16:00)
[2016-11-17] MEDS ORDERED: HYDROmorphONE 1 MG/ML SYG IV PRN ×2 (16:00)
[2016-11-17] MEDS ORDERED: DIPHENHYDRAMINE 50 MG INJ IV PRN (16:00)
[2016-11-17] MEDS ORDERED: ZOLPIDEM 5 MG TAB PO PRN (16:00)
[2016-11-17] MEDS ORDERED: ONDANSETRON 4 MG INJ IV PRN (16:00)
[2016-11-17] MEDS ORDERED: OXYTOCIN 30 UNITS/LR 500 ML IV PRN (19:30)
[2016-11-17] MEDS ORDERED: CARBOPROST 250 MCG INJ IM PRN (19:30)
[2016-11-17] MEDS ORDERED: METHYLERGONOVINE 0.2 MG INJ IM PRN (19:30)
[2016-11-17] MEDS ORDERED: LANOLIN 7 GM TUBE TOP PRN (19:30)
[2016-11-17] MEDS ORDERED: OXYCODONE/ACETAMINOPHEN (5/325) TAB PO PRN (19:30)
[2016-11-17] MEDS ORDERED: MISOPROSTOL 200 MCG TAB PR PRN (19:30)
[2016-11-17 20:10] VITALS: BP 108/59; PULSE 148; RESP 18
[2016-11-17] MEDS: SENNA/DOCUSATE NA (8.6MG/50MG) TAB PO SCH (21:00)
[2016-11-17] MEDS: CEFAZOLIN 2 GM/50 ML (PMX) 50 ML IV SCH (23:23)
[2016-11-18] VITALS: BP 105/60; PULSE 88; RESP 18
[2016-11-18 04:00] VITALS: BP 109/56; PULSE 100; RESP 18
[2016-11-18] MEDS: IBUPROFEN 600 MG TAB PO SCH ×4 (05:22→17:34)
[2016-11-18] MEDS: LACTATED RINGER'S 1,000 ML IV SCH ×2 (06:15→12:36)
[2016-11-18] MEDS: KETOROLAC 30 MG INJ IV PRN ×2 (06:20→13:35)
[2016-11-18 09:00] VITALS: BP 93/55; PULSE 77; RESP 18
[2016-11-18] MEDS: PRENATAL VITAMIN PO SCH (09:14)
[2016-11-18] MEDS: FOLIC ACID 0.4 MG TAB PO SCH (09:14)
[2016-11-18] MEDS: SENNA/DOCUSATE NA (8.6MG/50MG) TAB PO SCH ×2 (09:16→21:58)
[2016-11-18] MEDS: CEFAZOLIN 2 GM/50 ML (PMX) 50 ML IV SCH ×2 (09:21→17:34)
[2016-11-18 11:21] LABS: BASOPHILS % 0.3 % (0.0-2.0); EOSINOPHILS # 0.1 10^3/ul (0.0-0.5); EOSINOPHILS % 0.5 % (0.0-7.0); HEMATOCRIT 32.9 % (37.0-47.0); LYMPHOCYTES # 1.4 10^3/ul (0.8-2.9); LYMPHOCYTES % 9.2 % (15.0-51.0); MEAN CORPUSCULAR HEMOGLOBIN 32.8 pg (29.0-33.0); MEAN CORPUSCULAR HGB CONC 33.4 g/dl (32.0-37.0); MEAN CORPUSCULAR VOLUME 98.2 fl (82.0-101.0); MEAN PLATELET VOLUME 10.6 fl (7.4-10.4); MONOCYTE # 0.9 10^3/ul (0.3-0.9); NEUTROPHIL # 12.6 10^3/ul (1.6-7.5); NEUTROPHILS % 83.3 % (39.0-77.0); PLATELET COUNT 214 10^3/UL (140-415); RED BLOOD COUNT 3.35 10^6/ul (4.20-5.40); RED CELL DISTRIBUTION WIDTH 12.5 % (11.5-14.5); WHITE BLOOD COUNT 15.1 10^3/ul (4.8-10.8)
[2016-11-18 16:30] VITALS: BP 98/56; PULSE 76; RESP 18
--- NOTE | 2016-11-18 16:35 | OPR ---
DATE OF OPERATION: 11/17/2016 PREOPERATIVE DIAGNOSES: 1. Intrauterine at 38 weeks gestational age. 2. Cholestasis of . 3. Category 2 tracing. 4. Positive meconium and labor, prolonged rupture of membrane, arrest and descent. 5. Anterior vaginal cyst. 6. Declines vacuum assisted vaginal delivery. 7. Desires delivery. POSTOPERATIVE DIAGNOSES: 1. Intrauterine at 38 weeks gestational age. 2. Cholestasis of . 3. Category 2 tracing. 4. Positive meconium and labor, prolonged rupture of membrane, arrest and descent. 5. Anterior vaginal cyst. 6. Declines vacuum assisted vaginal delivery. 7. Desires delivery. OPERATIVE PROCEDURE: Primary low transverse delivery. SURGEON: Dr. Hilario. TUBE WRAPPER: Dr. Escobar. ANESTHESIA: Epidural. COMPLICATIONS: None. ESTIMATED BLOOD LOSS: 500 mL. OPERATIVE FINDINGS AT SURGERY: A viable male, 8 and 9 respectively at 1 and 5 minutes, weight 7 pounds 8 ounces in OP presentation, positive meconium. Normal uterus, tubes, and ovaries. OPERATIVE PROCEDURE: Procedure after explaining the risks, benefits, alternatives, patient consent signed in the chart. The patient was taken to the operating room, where epidural anesthesia was found to be adequate. She was then prepared and draped in the normal sterile fashion. Dorsal supine position with a leftward tilt. A Pfannenstiel skin incision was then made with a scalpel and carried through the underlying of the fascia. The fascia was incised in the midline. Incision was extended laterally with Jackson scissors. The superior aspect of the fascial incision was grasped with Maggie clamps, elevated, and underlying rectus muscles dissected off bluntly. Attention was then turned to the inferior aspect incision which in similar fashion was grasped, tented up with Maggie clamps, and rectus muscles dissected off bluntly. The rectus muscle was in midline. Peritoneum identified, tented up, entered sharply with Metzenbaum scissors. The peritoneal incision was then extended superiorly and good visualization of bladder. The bladder blade was then inserted and the vesicouterine peritoneum identified, grasped with pickups, entered sharply with Metzenbaum scissors. The incision was extended laterally and a bladder flap created digitally. The bladder blade was then reinserted and the lower segment incised in a transverse fashion with the scalpel. The uterine incision was extended laterally. The bladder blade was removed and the 's head delivered automatically. The nose and mouth were suctioned. Cord clamped and cut. The infant was handed off to awaiting chief clinical dietitian. The placenta was then removed. The uterus with cleared of all debris. The uterine incision was repaired with 1-0 chromic in a running, locked fashion. Second layer of same suture was used for imbrication with excellent hemostasis. The uterus was then returned to the abdomen. The gutters were cleared of all clots. The peritoneum and rectus abdominal muscles reapproximated with 3-0 Vicryl in an interrupted fashion. The fascia was reapproximated with 0 Vicryl in a running fashion. The skin was closed with absorbable anthony. The patient tolerated procedure well. Sponge, lap, needle counts correct times 2. The patient was taken to recovery room in stable condition. Dictated By: Josue Hilario MD /leslie/ila /Document#: [id number]
--- NOTE | 2016-11-18 18:27 | QN ---
Documentation Comment Progress note postop day 1 Patient seen and evaluated awake alert oriented 3 positive ambulation positive voiding tolerating diet Vital signs stable afebrile Abdomen soft nontender uterine fundus firm below umbilicus dressing clean Extremity negative edema no calf tenderness Assessment status post primary delivery postop day 1 stable afebrile Plan CBC in a.m. encourage ambulation DAVID MALDONADO MD Nov 18, 2016 18:27
[2016-11-18 19:50] VITALS: BP 94/55; PULSE 73; RESP 18
[2016-11-18] MEDS: OXYCODONE/ACETAMINOPHEN (5/325) TAB PO PRN (21:58)
[2016-11-19] MEDS: OXYCODONE/ACETAMINOPHEN (5/325) TAB PO PRN (04:02)
[2016-11-19 04:20] VITALS: BP_SYST 97; BP_DIAS 6; BP_DIAS 66; PULSE 72
[2016-11-19] MEDS: IBUPROFEN 600 MG TAB PO SCH ×4 (05:44→17:31)
[2016-11-19 07:40] VITALS: BP 109/54; PULSE 68; RESP 19
[2016-11-19] MEDS: PRENATAL VITAMIN PO SCH (09:12)
[2016-11-19] MEDS: SENNA/DOCUSATE NA (8.6MG/50MG) TAB PO SCH ×2 (09:12→21:02)
[2016-11-19] MEDS: FOLIC ACID 0.4 MG TAB PO SCH (09:12)
[2016-11-19 11:26] LABS: BASOPHILS % 0.3 % (0.0-2.0); EOSINOPHILS # 0.1 10^3/ul (0.0-0.5); EOSINOPHILS % 1.1 % (0.0-7.0); HEMATOCRIT 34.4 % (37.0-47.0); HEMOGLOBIN 11.7 g/dl (12.0-16.0); LYMPHOCYTES # 1.1 10^3/ul (0.8-2.9); MEAN CORPUSCULAR HEMOGLOBIN 33.1 pg (29.0-33.0); MEAN CORPUSCULAR VOLUME 97.5 fl (82.0-101.0); MEAN PLATELET VOLUME 10.2 fl (7.4-10.4); MONOCYTE # 0.6 10^3/ul (0.3-0.9); MONOCYTES % 4.9 % (0.0-11.0); NEUTROPHIL # 9.9 10^3/ul (1.6-7.5); NEUTROPHILS % 84.2 % (39.0-77.0); PLATELET COUNT 247 10^3/UL (140-415); RED BLOOD COUNT 3.53 10^6/ul (4.20-5.40); RED CELL DISTRIBUTION WIDTH 12.3 % (11.5-14.5); WHITE BLOOD COUNT 11.7 10^3/ul (4.8-10.8)
[2016-11-19 16:00] VITALS: BP 106/62; PULSE 91; RESP 19
--- NOTE | 2016-11-19 19:13 | PN ---
Date/Time of Note Date/Time of Note DATE: 11/19/16 TIME: 19:07 OB Subjective Subjective Subjective Denies any complaint Breast feeding, Ambulating, tolerated regular diet, Passed flatus and had bowel movement. Vaginal bleeding in the amount of menses,. Pain well controlled with PO pain meds. OB Objective Objective Objective General appearance: Alert and oriented 4. Patient does not appear to be in any acute distress. Abdomen: Soft, appropriate tenderness in the incision Incision: Clean dry and intact with no evidence of infection, wound cellulitis or drainage Extremities: No calf tenderness, no click no edema Hematology - 72 Hrs Test 11/18/16 10:33 11/19/16 11:00 White Blood Count 15.110^3/ul (4.8-10.8) #H 11.710^3/ul (4.8-10.8) #H Red Blood Count 3.3510^6/ul (4.20-5.40) #L 3.5310^6/ul (4.20-5.40) L Hemoglobin 11.0g/dl (12.0-16.0) #L 11.7g/dl (12.0-16.0) L Hematocrit 32.9% (37.0-47.0) L 34.4% (37.0-47.0) L Mean Corpuscular Volume 98.2fl (82.0-101.0) 97.5fl (82.0-101.0) Mean Corpuscular Hemoglobin 32.8pg (29.0-33.0) 33.1pg (29.0-33.0) H Mean Corpuscular Hemoglobin Concent 33.4g/dl (32.0-37.0) 34.0g/dl (32.0-37.0) Red Cell Distribution Width 12.5% (11.5-14.5) 12.3% (11.5-14.5) Platelet Count 29346^3/UL (140-415) 28011^3/UL (140-415) Mean Platelet Volume 10.6fl (7.4-10.4) H 10.2fl (7.4-10.4) Neutrophils % 83.3% (39.0-77.0) H 84.2% (39.0-77.0) H Lymphocytes % 9.2% (15.0-51.0) L 9.0% (15.0-51.0) L Monocytes % 6.0% (0.0-11.0) 4.9% (0.0-11.0) Eosinophils % 0.5% (0.0-7.0) 1.1% (0.0-7.0) Basophils % 0.3% (0.0-2.0) 0.3% (0.0-2.0) Nucleated Red Blood Cells % 0.0/100WBC (0.0-0.0) 0.0/100WBC (0.0-0.0) Neutrophils # 12.610^3/ul (1.6-7.5) H 9.910^3/ul (1.6-7.5) H Lymphocytes # 1.410^3/ul (0.8-2.9) 1.110^3/ul (0.8-2.9) Monocytes # 0.910^3/ul (0.3-0.9) 0.610^3/ul (0.3-0.9) Eosinophils # 0.110^3/ul (0.0-0.5) 0.110^3/ul (0.0-0.5) Basophils # 0.010^3/ul (0.0-0.1) 0.010^3/ul (0.0-0.1) Nucleated Red Blood Cells # 0.010^3/ul (0.0-0.0) 0.010^3/ul (0.0-0.0) OB Assessment/Plan Other Assessment: Status post section Postop day #2 Doing well Continue routine postop care LOTTIE MADSEN MD Nov 19, 2016 19:13
[2016-11-19 20:00] VITALS: BP 105/66; PULSE 66; RESP 88
[2016-11-20] MEDS: IBUPROFEN 600 MG TAB PO SCH ×4 (00:02→17:51)
[2016-11-20 04:00] VITALS: BP 101/56; PULSE 74; RESP 18
[2016-11-20 07:30] VITALS: BP 105/57; PULSE 87; RESP 18
[2016-11-20] MEDS: FOLIC ACID 0.4 MG TAB PO SCH (09:38)
[2016-11-20] MEDS: PRENATAL VITAMIN PO SCH (09:38)
[2016-11-20] MEDS: SENNA/DOCUSATE NA (8.6MG/50MG) TAB PO SCH (09:38)
--- NOTE | 2016-11-20 13:49 | DS ---
Date/Time of Note Date/Time of Note DATE: 11/20/16 TIME: 13:48 Obstetrical Discharge Record Final Diagnosis Final Diagnosis: Term delivered Other Final Diagnosis primary c/section for prolonged rupture and CAt II tracing cholestatis of Section Section: Primary Primary Indication Catagory 2 tracing Complications Other Condition on Discharge Physical Assessment Voiding: Yes Bowel Movement: Yes Breast: Soft, non-tender Fundus: Firm Calf Tenderness: No Patient Condition: Stable ROBERTO DE LA ROSA MD Nov 20, 2016 13:49
[2016-11-20] MEDS: OXYCODONE/ACETAMINOPHEN (5/325) TAB PO PRN (15:14)
[2016-11-20] MEDS ORDERED: INFLUENZA VIRUS VACCINE 0.5 ML (DISPENSING) IM* ONE (18:30)
== END 2016-11-20 19:35 | disposition home or self-care (01) | DRG 765 ==
LOC: L-D 13:49 → OBT 13:49 → L-D 16:30 → OBT 16:30 → L-D 11-15 06:13 → PP1 11-17 19:44
PROVIDERS: ADMIT Obstetrics & Gynecology; ATTEND Obstetrics & Gynecology
PROC: 10D00Z1 Extraction of Products of Conception, Low, Open Approach (ICD-10-PCS; principal; 2016-11-16)
PROC: 3E033VJ Introduction of Other Hormone into Peripheral Vein, Percutaneous Approach (ICD-10-PCS; 2016-11-16)
DX: O26.62 Liver and biliary tract disorders in childbirth (principal); K83.1 Obstruction of bile duct; O63.9 Long labor, unspecified; Z3A.38 38 weeks gestation of pregnancy; Z37.0 Single live birth; O77.0 Labor and delivery complicated by meconium in amniotic fluid; O62.1 Secondary uterine inertia; N89.8 Other specified noninflammatory disorders of vagina
CPT/HCPCS: 62319; 76818; 85025; 85610; 85730; 86592; 86900; 86901; 90686; 94760; 99464; G0463; J0290; J0595; J0690; J1100; J1885; J2274; J2405; J2590; J3010; J7120

== ENCOUNTER 2016-11-28 14:26 | Emergency (ER) | payer MEDICAID ==
[~2016-11-28] VITALS: Ht 154.9 cm; Wt 67.0 kg
[2016-11-28 14:35] VITALS: Ht 154.9 cm; Wt 67.0 kg
[2016-11-28] MEDS ORDERED: KETOROLAC 15 MG INJ IV STA (16:17)
[2016-11-28] MEDS ORDERED: SOD CHLORIDE 0.9% 1,000 ML IV STA (16:17)
--- NOTE | 2016-11-28 16:49 | ERD ---
ER Documentation Chief Complaint Date/Time DATE: 11/28/16 TIME: 16:45 Chief Complaint Complains of abdomonal pain post HPI 30-year-old woman wants wound evaluation after section about 2 weeks ago. Steri-Strips are still in place and patient denies fevers or chills, no purulent discharge, no vomiting or diarrhea. ROS All systems reviewed and are negative except as per history of present illness. Medications Home Meds Reported Medications Folic Acid* (Folic Acid*) 0.4 Mg Tablet, 0.4 MG PO DAILY, TAB 10/11/16 Multivit/Min/Fol Ac/Iron/Pren* ( S*) 1 Tab Tab, 1 TAB PO DAILY, TAB 10/11/16 Allergies Allergies: Coded Allergies: No Known Allergy (Unverified , 10/30/16) PMhx/Soc None History of Surgery: No Anesthesia Reaction: No Hx Neurological Disorder: No Hx Respiratory Disorders: No Hx Cardiac Disorders: No Hx Psychiatric Problems: No Hx Miscellaneous Medical Probl: No Hx Alcohol Use: No Hx Substance Use: No Hx Tobacco Use: No Smoking Status: Never smoker Physical Exam Vitals Vital Signs Date Time Temp Pulse Resp B/P Pulse Ox O2 Delivery O2 Flow Rate FiO2 11/28/16 14:35 99.0 71 20 103/56 97 Physical Exam GENERAL: Well-developed, well-nourished, well-hydrated, in no apparent distress , looks nontoxic in appearance HEENT: Moist mucous membranes, pink conjunctiva, no cervical spine tenderness or step-off deformities, no goiter, no jaundice or icterus, extraocular movements intact without pain. No submandibular induration, and no pharyngeal erythema NEURO: Alert and oriented 3, cranial nerves II through XII intact bilaterally, pupils equal round reactive to light, no focal deficits or facial asymmetry, sensation intact distally Strength 5/5 in upper and lower extremities bilaterally CARDIAC: Regular rate and rhythm, no murmurs rubs or gallops LUNGS: Clear bilaterally no wheezing crackles or stridor ABDOMEN: Soft nontender, no guarding, no rigidity, no rebound, no psoas sign no obturator sign. section scar appears clean and dry, no wound dehiscence or purulent discharge noted. No surrounding skin induration or erythema noted SKIN: Warm and dry to touch, no abrasions, contusions, or hematomas, positive C- section incision site appears clean and dry, no ecchymosis, no target lesions, and without ulcers EXTREMITIES: No clubbing cyanosis, 1+ pitting edema in the lower extremities bilaterally, calves are bilaterally symmetrical, no Homans sign, no popliteal cord sign. Distal pulses equal and bilateral PSYCH: Normal affect without agitation or irritability Results 24 hrs Current Medications Medications (Trade) Dose Ordered Sig/Kun Route PRN Reason Start Time Stop Time Status Last Admin Dose Admin Sodium Chloride (NS) 1,000 ml @ 1,000 mls/hr Q1H STAT IV 11/28/16 16:17 11/28/16 17:16 11/28/16 16:42 Ketorolac Tromethamine (Toradol) 15 mg ONCE STAT IV 11/28/16 16:17 11/28/16 16:18 DC 11/28/16 16:42 Procedures/MDM IV line was established patient was placed on cardiac nurse practitioner rhythm strip revealed a normal sinus rhythm at about 80 bpm with upright P and T waves. Patient was afebrile. I administered 500 cc normal saline intravenously and Toradol 15 mg IV 1 for headache. CBC and electrolytes are normal, liver function tests were normal. If urinalysis is positive she will be treated with antibiotics as an outpatients. Differential diagnoses considered, included but not limited to acute coronary syndrome, pulmonary embolism, aortic dissection, abdominal aortic aneurysm, sepsis, stroke, meningitis, encephalitis, pneumonia, appendicitis, cholecystitis , bowel obstruction, pyelonephritis, nephrolithiasis, cystitis, as well as metabolic, hematologic, and electrolyte abnormalities. As well as abscess, cellulitis, fractures, and dislocations. Patient feels much better at this time, and vital signs are normal, symptoms have improved. I did give strict instructions to return to the ED if symptoms continue or worsen, patient will otherwise follow-up with primary care physician. Patient understood instructions and agreed to plan. Disclaimer: Inadvertent spelling and grammatical errors are likely due to EHR/ dictation software use and do not reflect on the overall quality of patient care. Also, please note that the electronic time recorded on this note does not necessarily reflect the actual time of the patient encounter. Departure Diagnosis: Primary Impression: Postoperative pain Additional Impressions: Acute headache Headache type: tension-type Intractability: not intractable Qualified Code : G44.209 - Acute non intractable tension-type headache Peripheral edema Condition: Good ZOHRABIAN,JASSI MD Nov 28, 2016 16:49
[2016-11-28 16:54] LABS: BASOPHIL # 0.1 10^3/ul (0.0-0.1); BASOPHILS % 0.6 % (0.0-2.0); EOSINOPHILS # 0.3 10^3/ul (0.0-0.5); EOSINOPHILS % 2.8 % (0.0-7.0); HEMATOCRIT 34.3 % (37.0-47.0); HEMOGLOBIN 11.8 g/dl (12.0-16.0); LYMPHOCYTES % 21.8 % (15.0-51.0); MEAN CORPUSCULAR HEMOGLOBIN 32.8 pg (29.0-33.0); MEAN CORPUSCULAR HGB CONC 34.4 g/dl (32.0-37.0); MEAN CORPUSCULAR VOLUME 95.3 fl (82.0-101.0); MEAN PLATELET VOLUME 8.5 fl (7.4-10.4); MONOCYTE # 0.5 10^3/ul (0.3-0.9); MONOCYTES % 5.4 % (0.0-11.0); NEUTROPHIL # 6.3 10^3/ul (1.6-7.5); PLATELET COUNT 497 10^3/UL (140-415); RED CELL DISTRIBUTION WIDTH 11.7 % (11.5-14.5); WHITE BLOOD COUNT 9.1 10^3/ul (4.8-10.8)
[2016-11-28 17:15] LABS: ALBUMIN 3.4 g/dl (3.3-4.9); BILIRUBIN,INDIRECT 0.1 mg/dl (0-1.1); BILIRUBIN,TOTAL 0.1 mg/dl (0.2-1.3); CALCIUM 8.8 mg/dl (8.4-10.2); CREATININE 0.69 mg/dl (0.44-1.00); POTASSIUM 3.7 mmol/L (3.5-5.1); TOTAL PROTEIN 6.8 g/dl (6.1-8.1)
[2016-11-28] MEDS ORDERED: IBUP-1542 PO (17:19)
[2016-11-28 18:03] VITALS: BP 114/62; PULSE 76; RESP 18; TEMP 98.8
[2016-11-28 18:06] LABS: ADD UMIC YES; UR ASCORBIC ACID NEGATIVE (NEGATIVE); UR BILIRUBIN (Dip) NEGATIVE (NEGATIVE); UR BLOOD (Dip) 3+ mg/dL (NEGATIVE); UR CLARITY SLIGHTLY CLOUDY (CLEAR); UR COLOR RED (YELLOW); UR GLUCOSE (Dip) NEGATIVE (NEGATIVE); UR KETONES (Dip) NEGATIVE (NEGATIVE); UR LEUKOCYTE ESTERASE (Dip) 3+ Leu/ul (NEGATIVE); UR MUCUS FEW /HPF (NONE SEEN); UR NITRITE (Dip) NEGATIVE (NEGATIVE); UR RBC 6 /HPF (0-5); UR SPECIFIC GRAVITY (Dip) 1.017 (1.003-1.030); UR SQUAMOUS EPITHELIAL CELL FEW /HPF (FEW); UR TOTAL PROTEIN (Dip) 1+ mg/dl (NEGATIVE); UR UROBILINOGEN (Dip) 1+ mg/dL (NEGATIVE)
[2016-11-28] MEDS ORDERED: CEPH-443 PO (18:12)
[2016-11-28] MEDS ORDERED: CEFTRIAXONE 1 GM/50 ML (PMX) 50 ML IVPB ONE (18:30)
== END 2016-11-28 19:05 | disposition home or self-care (01) ==
LOC: E/R 14:26
DX: O90.89 Other complications of the puerperium, not elsewhere classified (principal); G89.18 Other acute postprocedural pain; G44.209 Tension-type headache, unspecified, not intractable; R60.0 Localized edema
CPT/HCPCS: 36415; 80053; 81001; 83690; 85025; 96361; 96374; 96375; J0696; J1885; J7030; Z7502

== ENCOUNTER 2017-01-01 16:11 | Emergency (ER) | payer MEDICAID ==
[~2017-01-01] VITALS: Wt 60.0 kg
[~2017-01-01 16:11] MED LIST changes: +CEPH-443 PO; +IBUP-1542 PO
--- NOTE | 2017-01-01 18:10 | ERD ---
ER Documentation Chief Complaint Chief Complaint ABD PAIN, NAUSEA, NO VOMITING HPI 31-year-old female who is postop day 44 post complaining of abdominal pain with nausea. Patient states that she has had achy pain in her lower abdomen in the suprapubic region going to her right lower quadrant and it has been the same pain that she has had since her's surgery. She went to her 6 week postop visit today with Dr. Langford who referred her to the emergency department for further evaluation. She has not had any drainage from the site. She denies fevers or chills. ROS All systems reviewed and are negative except as per history of present illness. Medications Home Meds Active Scripts Acetaminophen* (Tylophen*) 500 Mg Capsule, 1 CAP PO Q6H Y for PAIN AND OR ELEVATED TEMP, #20 CAP Prov:NOMAN CARDOZA PA-C 01/01/17 Nitrofurantoin Monohyd Macrocr* (Macrobid*) 100 Mg Capsr, 100 MG PO BID for 14 Days, CAP Prov:NOMAN CARDOZA PA-C 01/01/17 Cephalexin* (Keflex*) 500 Mg Capsule, 500 MG PO QID for 7 Days, CAP Prov:JASSI PINEDA MD 11/28/16 Ibuprofen* (Ibuprofen*) 600 Mg Tablet, 600 MG PO Q8 for PAIN, #30 TAB Prov:JASSI PINEDA MD 11/28/16 Reported Medications Folic Acid* (Folic Acid*) 0.4 Mg Tablet, 0.4 MG PO DAILY, TAB 10/11/16 Multivit/Min/Fol Ac/Iron/Pren* ( S*) 1 Tab Tab, 1 TAB PO DAILY, TAB 10/11/16 Allergies Allergies: Coded Allergies: No Known Allergy (Unverified , 10/30/16) PMhx/Soc History of Surgery: No Anesthesia Reaction: No Hx Neurological Disorder: No Hx Respiratory Disorders: No Hx Cardiac Disorders: No Hx Psychiatric Problems: No Hx Miscellaneous Medical Probl: No Hx Alcohol Use: No Hx Substance Use: No Hx Tobacco Use: No Physical Exam Vitals Vital Signs Date Time Temp Pulse Resp B/P Pulse Ox O2 Delivery O2 Flow Rate FiO2 01/01/17 21:43 72 20 118/71 97 Room Air 01/01/17 16:16 97.2 61 18 108/63 100 Physical Exam General: Well-developed, well-nourished. The patient appears in no acute distress. HEENT: Head is normocephalic, atraumatic. No scleral icterus. Neck: Supple. Nontender. Lungs: Clear to auscultation. Normal air movement. Heart: Regular rate and rhythm. S1 and S2 are normal. No murmurs, gallops, or rubs. Abdomen: Soft, suprapubic tenderness, no masses, no peritoneal signs nondistended. Bowel sounds are normoactive. site intact, no dehiscence, erythema or drainage. Extremities: No clubbing or cyanosis. Normal pulses. Moving extremities x 4. No weakness. Neurologic: Alert and oriented 3. No focal deficits. Skin: Normal turgor. No rash or lesions. Result Diagram: 01/01/17183601/01/171836 Results 24 hrs Laboratory Tests Test 01/01/17 18:37 White Blood Count 9.010^3/ul Red Blood Count 4.3710^6/ul Hemoglobin 13.5g/dl Hematocrit 40.4% Mean Corpuscular Volume 92.4fl Mean Corpuscular Hemoglobin 30.9pg Mean Corpuscular Hemoglobin Concent 33.4g/dl Red Cell Distribution Width 11.0% Platelet Count 22284^3/UL Mean Platelet Volume 9.6fl Neutrophils % 62.8% Lymphocytes % 27.8% Monocytes % 5.9% Eosinophils % 2.7% Basophils % 0.6% Nucleated Red Blood Cells % 0.0/100WBC Neutrophils # 5.710^3/ul Lymphocytes # 2.510^3/ul Monocytes # 0.510^3/ul Eosinophils # 0.210^3/ul Basophils # 0.110^3/ul Nucleated Red Blood Cells # 0.010^3/ul Urine Color YELLOW Urine Clarity CLOUDY Urine pH 5.0 Urine Specific [place] 1.014 Urine Ketones TRACEmg/dL Urine Nitrite NEGATIVEmg/dL Urine Bilirubin NEGATIVEmg/dL Urine Urobilinogen NEGATIVEmg/dL Urine Leukocyte Esterase 3+Dale/ul Urine Microscopic RBC 6/HPF Urine Microscopic WBC 109/HPF Urine Squamous Epithelial Cells MODERATE/HPF Urine Bacteria FEW/HPF Urine Mucus FEW/HPF Urine Hemoglobin 1+mg/dL Urine Glucose NEGATIVEmg/dL Urine Total Protein NEGATIVEmg/dl Sodium Level 144mmol/L Potassium Level 3.7mmol/L Chloride Level 104mmol/L Carbon Dioxide Level 27mmol/L Anion Gap 17 Blood Urea Nitrogen 9mg/dl Creatinine 0.64mg/dl Glucose Level 78mg/dl Calcium Level 9.7mg/dl Total Bilirubin 0.3mg/dl Direct Bilirubin 0.00mg/dl Indirect Bilirubin 0.3mg/dl Aspartate Amino Transf (AST/SGOT) 61IU/L Alanine Aminotransferase (ALT/SGPT) 87IU/L Alkaline Phosphatase 116IU/L Total Protein 8.4g/dl Albumin 4.7g/dl Globulin 3.70g/dl Albumin/Globulin Ratio 1.27 Lipase 159U/L Current Medications Medications (Trade) Dose Ordered Sig/Kun Route PRN Reason Start Time Stop Time Status Last Admin Dose Admin IV Flush 10 ml 10 ml STK-MED ONCE .ROUTE 01/01/17 19:00 01/01/17 19:01 DC 01/01/17 20:10 Sodium Chloride (NS) 100 ml @ ud STK-MED ONCE .ROUTE 01/01/17 19:00 01/01/17 19:01 DC 01/01/17 20:15 Iohexol (Omnipaque 300mg/ ml) 150 ml STK-MED ONCE .ROUTE 01/01/17 19:00 01/01/17 19:01 DC 01/01/17 20:15 DIAGNOSTIC IMAGING REPORT Patient: ABISAI SLADE : 1985 Age: 31 Sex: F MR #: [id number] DOS: 01/01/17 1819 Ordering MD: NOMAN CARDOZA PA-C Location: E Room/Bed: PROCEDURE: Ultrasound pelvis. CLINICAL INDICATION: Lateral pelvic pain. TECHNIQUE: Multiple sonographic images of the pelvis were obtained utilizing a transabdominal and transvaginal technique. COMPARISON: Pelvic ultrasound dated 11/14/2016. FINDINGS: Uterus: 9.0 x 4.3 x 6.1 cm. Normal in size and echogenicity with no mass lesion identified. Endometrium: 6.4 mm in thickness. Unremarkable in appearance. Right ovary: 3.6 x 2.3 x 2.5 cm. Normal in size and echogenicity. Normal blood flow. Left ovary: 3.7 x 1.8 x 2.6 cm. Normal in size and echogenicity. Normal blood flow. Adnexa: No masses or sonographic abnormality. Free fluid: None. IMPRESSION: 1. Unremarkable pelvic ultrasound. RPTAT: HLBP .Leo Dominguez MD, MD Date Time Electronically viewed and signed by .Leo Dominguez MD, MD on 01/01/2017 18:51 .P/ DIAGNOSTIC IMAGING REPORT Patient: ABISAI SLADE : 1985 Age: 31 Sex: F MR #: [id number] DOS: 01/01/17 1803 Ordering MD: NOMAN CARDOZA PA-C Location: [facility] Room/Bed: PROCEDURE: CT Abdomen and Pelvis with Contrast CLINICAL INDICATION: Postop section times 6 weeks with abdominal pain TECHNIQUE: Transaxial images were obtained through the abdomen and pelvis on a multi-slice scanner following the intravenous administration of 80 ml of Omnipaque-300 contrast. No oral contrast had previously been given. Sagittal and coronal re-formations were subsequently reconstructed. One or more of the following dose reduction techniques were used: - Automated exposure control. - Adjustment of the mA and/or kV according to patient size. - Use of iterative reconstruction technique. Radiation dose: CTDIvol = 7.10 mGy; DLP = 350.33 mGy-cm. COMPARISON: Comparison to the previous pelvic sonogram done earlier on the same date. The previous pelvic sonogram was unremarkable. FINDINGS: Lung bases: The visualized lung bases appear unremarkable. Liver: The liver is upper normal in size with no focal lesion. Gallbladder: Calcific density material compatible with sludge is seen to layer within the gallbladder. The gallbladder wall is not thickened. Bile ducts: The intra and extrahepatic bile ducts are normal in caliber. Pancreas: Appears normal with no mass or inflammation evident. Spleen: Normal in size with no focal lesion. Adrenals: Normal with no mass identified. Kidneys, ureters and bladder: The kidneys enhance normally and are normal in size and there is no mass, pathological calcification, or hydronephrosis evident. There is no perinephric stranding. The ureters are normal in caliber and no ureteroliths are identified. The bladder appears unremarkable. Reproductive organs: The uterus is not enlarged. At the anterior lower uterine segment, there is a 3.5 x 1.7 x 1.6 cm hypodensity measuring 30 HU. There is mild wall enhancement. The serosal surface appears intact. No adnexal mass is evident. Stomach, bowel, and mesentery: The stomach and bowel appear unremarkable without evidence of obstruction or inflammation. Appendix: A normal retrocecal vermiform appendix is evident. Peritoneum: There is a trace of free intraperitoneal fluid in the cul-de-sac with no free air identified. Aorta: Normal in caliber with no aneurysmal dilatation. IVC: Unremarkable. Lymph nodes: No pathologically enlarged nodes are identified. Osseous structures: The osseous elements appear intact. IMPRESSION: 1. Within the anterior uterine wall at the lower uterine segment there is a 3.5 x 1.7 x 1.6 cm hypodensity measuring 30 HU with mild wall enhancement. The serosal layer appears intact. Differential possibilities include a hematoma at the section scar and a small an abscess cannot be excluded. A pelvic MRI may be useful to exclude the possibility of early dehiscence at the site. The endometrial cavity is empty. 2. Calcific density sludge is seen to layer within the gallbladder but the gallbladder wall is not thickened and no bile duct dilatation or pancreatic pathology is evident. 3. There is no evidence of bowel obstruction or inflammation and no evidence of urinary outflow obstruction or ureterolithiasis within normal appearing bladder. 4. Trace amount of free intraperitoneal fluid with no free air evident. Findings of 3.5 x 1.7 x 1.6 cm area of decreased attenuation within the anterior wall at the lower uterine segment were telephoned by Uziel Valentine MD to [facility] on 01/01/2017 at 2052 hours. Physician Kimmie Date Time Electronically viewed and signed by Physician Kimmie on 01/01/2017 20:55 RH/ CC: NOMAN CARDOZA PA-C Procedures/MDM ER course: Patient had an IV line established, blood and urine were obtained. MDM: 31-year-old female presents with suprapubic abdominal pain, she comes in as a postoperative patient had a about 6 weeks ago. The patient was seen by Fabiano Langford, physician salon shampoo assistant at the [facility] and was referred to the emergency room. Patient CT abdomen pelvis shows an area of nonspecific findings, radiologist was unsure if it was either hematoma, or abscess. She has had the same pain since the surgery, and has had a urinary tract infection. She again presents with a UTI with multiple white blood cells in her urine analysis despite being treated with Keflex about a month ago. She did complete antibiotics, but still persists with a UTI, and therefore urine culture will be done today. Patient's history does not include fever, tachycardia, or elevated white blood cell count, she does not meet SIRS criteria or sepsis criteria. Her physical examination shows suprapubic tenderness that is most consistent with a UTI. Pelvic ultrasound was also performed, no signs of endometritis, retained products. I am doubtful that she has acute or surgical abdominal process, I doubt hematoma, dehiscence, cellulitis, intra-abdominal abscess given that the patient's history has been ongoing for several weeks and she has not developed a fever or peritoneal signs. Additionally her site is intact, no signs of cellulitis, dehiscence. CT did show cholestasis however her other workup was unremarkable and she does not have any right upper quadrant pain. she is well-appearing, and is appropriate to be discharged home. Her OB, Dr Langford, was consulted and we reviewed her vital signs, blood work, labs and her CT imaging. He feels comfortable at this time following up with her outpatient. Without any fever, elevated white blood cell count, normal vital signs is unlikely the patient has evidence of an abscess or dehiscence. The patient will be, given copies of all of her workup. Departure Diagnosis: Primary Impression: UTI (urinary tract infection) Additional Impression: Post-op pain Condition: NOMAN Perez PA-C Jan 01, 2017 18:10
--- NOTE | 2017-01-01 18:51 | RADRPT ---
PROCEDURE: Ultrasound pelvis. CLINICAL INDICATION: Lateral pelvic pain. TECHNIQUE: Multiple sonographic images of the pelvis were obtained utilizing a transabdominal and transvaginal technique. COMPARISON: Pelvic ultrasound dated 11/14/2016. FINDINGS: Uterus: 9.0 x 4.3 x 6.1 cm. Normal in size and echogenicity with no mass lesion identified. Endometrium: 6.4 mm in thickness. Unremarkable in appearance. Right ovary: 3.6 x 2.3 x 2.5 cm. Normal in size and echogenicity. Normal blood flow. Left ovary: 3.7 x 1.8 x 2.6 cm. Normal in size and echogenicity. Normal blood flow. Adnexa: No masses or sonographic abnormality. Free fluid: None. IMPRESSION: 1. Unremarkable pelvic ultrasound. RPTAT: HLBP .Leo Dominguez MD, MD Date Time Electronically viewed and signed by .Leo Dominguez MD, MD on 01/01/2017 18:51 .P/
[2017-01-01] MEDS ORDERED: IOHEXOL 300MG/ML 150 ML BTL ONE (19:00)
[2017-01-01] MEDS ORDERED: SOD CHLORIDE 0.9% 100 ML ONE (19:00)
--- NOTE | 2017-01-01 20:55 | RADRPT ---
PROCEDURE: CT Abdomen and Pelvis with Contrast CLINICAL INDICATION: Postop section times 6 weeks with abdominal pain TECHNIQUE: Transaxial images were obtained through the abdomen and pelvis on a multi-slice scanner following the intravenous administration of 80 ml of Omnipaque-300 contrast. No oral contrast had previously been given. Sagittal and coronal re-formations were subsequently reconstructed. One or more of the following dose reduction techniques were used: - Automated exposure control. - Adjustment of the mA and/or kV according to patient size. - Use of iterative reconstruction technique. Radiation dose: CTDIvol = 7.10 mGy; DLP = 350.33 mGy-cm. COMPARISON: Comparison to the previous pelvic sonogram done earlier on the same date. The previous pelvic sonogram was unremarkable. FINDINGS: Lung bases: The visualized lung bases appear unremarkable. Liver: The liver is upper normal in size with no focal lesion. Gallbladder: Calcific density material compatible with sludge is seen to layer within the gallbladde r. The gallbladder wall is not thickened. Bile ducts: The intra and extrahepatic bile ducts are normal in caliber. Pancreas: Appears normal with no mass or inflammation evident. Spleen: Normal in size with no focal lesion. Adrenals: Normal with no mass identified. Kidneys, ureters and bladder: The kidneys enhance normally and are normal in size and there is no ma ss, pathological calcification, or hydronephrosis evident. There is no perinephric stranding. The ur eters are normal in caliber and no ureteroliths are identified. The bladder appears unremarkable. Reproductive organs: The uterus is not enlarged. At the anterior lower uterine segment, there is a 3 .5 x 1.7 x 1.6 cm hypodensity measuring 30 HU. There is mild wall enhancement. The serosal surface a ppears intact. No adnexal mass is evident. Stomach, bowel, and mesentery: The stomach and bowel appear unremarkable without evidence of obstruc tion or inflammation. Appendix: A normal retrocecal vermiform appendix is evident. Peritoneum: There is a trace of free intraperitoneal fluid in the cul-de-sac with no free air identi fied. Aorta: Normal in caliber with no aneurysmal dilatation. IVC: Unremarkable. Lymph nodes: No pathologically enlarged nodes are identified. Osseous structures: The osseous elements appear intact. IMPRESSION: 1. Within the anterior uterine wall at the lower uterine segment there is a 3.5 x 1.7 x 1.6 cm hypo density measuring 30 HU with mild wall enhancement. The serosal layer appears intact. Differential p ossibilities include a hematoma at the section scar and a small an abscess cannot be exclud ed. A pelvic MRI may be useful to exclude the possibility of early dehiscence at the site. The endometrial cavity is empty. 2. Calcific density sludge is seen to layer within the gallbladder but the gallbladder wall is not t hickened and no bile duct dilatation or pancreatic pathology is evident. 3. There is no evidence of bowel obstruction or inflammation and no evidence of urinary outflow obs truction or ureterolithiasis within normal appearing bladder. 4. Trace amount of free intraperitoneal fluid with no free air evident. Findings of 3.5 x 1.7 x 1.6 cm area of decreased attenuation within the anterior wall at the lower u terine segment were telephoned by Uziel Valentine MD to [facility] on 01/01/2017 at 2052 hours. Physician Kimmie Date Time Electronically viewed and signed by Physician Kimmie on 01/01/2017 20:55 RH/
[2017-01-01] MEDS ORDERED: ACET500C5 PO (21:35)
[2017-01-01] MEDS ORDERED: NITR-58 PO (21:35)
[2017-01-01 21:43] VITALS: BP 118/71; PULSE 72; RESP 20
== END 2017-01-01 21:44 | disposition home or self-care (01) ==
LOC: FTE 16:11
DX: N39.0 Urinary tract infection, site not specified (principal); G89.18 Other acute postprocedural pain; R10.2 Pelvic and perineal pain
CPT/HCPCS: 36415; 74177; 76856; 80053; 81001; 83690; 85025; 87086; Q9967; Z7502; Z7610